=== PATIENT | female | born 1965 | race Caucasian/White ===

== ENCOUNTER 2017-06-07 08:56 | Inpatient (IN) | payer BC ==
--- NOTE | 2017-06-06 12:42 | PREOPHP ---
DATE OF ADMISSION: 06/07/2017 Brenden Eisenberg MD dictating for Keith Estevez MD PROCEDURE: Right total hip. IDENTIFICATION: The patient is [id number]. Vital signs of blood pressure 138/92, temperature 97.7, pulse 82, respirations 18, BMI 43.9, height 5 feet 3 inches, weight 248. HISTORY OF PRESENT ILLNESS: The patient has chronic pain in both hips, more on her right, for over the last 10 years. Has been followed by orthopedics for this. She has osteoarthritis. PAST SURGICAL HISTORY: Both hands and right foot. PAST MEDICAL HISTORY: OA, BPPV, EDD, asthma, history of renal calculi. FAMILY HISTORY: Her mom was 60 and of cancer of the colon. Dad is unknown. SOCIAL HISTORY: She lives locally and is with 1 dependent. Does not use tobacco but is rare use of alcohol. RESIDENTIAL GLAZIER HISTORY: 4, para 3. REVIEW OF SYSTEMS: HEENT: Decreased visual acuity, decreased hearing and headaches. GENITOURINARY: Positive for urethral calculi by history. CARDIOVASCULAR: Shortness of breath and ankle edema. PHYSICAL EXAMINATION: HEENT: BRAD and EOMI. Neck supple. Full range of motion. Tympanic membranes right and left are clear. Throat clear. LUNGS: Clear. CARDIAC: Regular rate and rhythm. No S3 or S4. No murmurs. ABDOMEN: Obese. Bowel sounds are present. No hepatosplenomegaly. GENITOURINARY: Deferred. SKIN: No lesions. LYMPHATICS: No adenopathy. NEUROLOGICAL: Grossly intact. EXTREMITIES: Right hip is painful to motion and palpation, and decreased range of motion. Left hip slight tenderness with decreased range of motion. ASSESSMENT: Severe osteoarthritis affecting the right hip. OTHER DIAGNOSES: 1. Obesity. 2. Osteoarthritis. 3. Multiple allergies. 4. Prolonged QT interval on EKG. 5. Asthma. 6. EDD. 7. Renal calculi. 8. BPPV. 9. History of SLE, on no medications. MEDICINES AND ALLERGIES: Listed in the fax material. PLAN: For Dr. Estevez to do surgery on 06/07/2017, total right hip. Dictated By: MD MYLES Sim/alvin/richard /Document#: [id number]
[2017-06-07] VITALS (21 sets, daily range): BP systolic 85–149; BP diastolic 55–96; PULSE 81–102; RESP 13–22; Ht 160 cm; Wt 112.6 kg
[~2017-06-07] VITALS: Ht 160 cm; Wt 112.6 kg
[~2017-06-07 08:56] MED LIST: BUPIVACAINE 0.5% IRR SCH; CEFAZOLIN 2 GM/50 ML (PMX) 50 ML IVPB ONE; CLONIDINE IRR SCH; DEXAMETHASONE 1 MG TAB PO ONE; EPINEPHRINE IRR SCH; GABAPENTIN 300 MG CAP PO ONE; KETOROLAC IRR SCH; SOD CHLORIDE 0.9% 100 ML, TRANEXAMIC ACID 3,000 MG IRR ONE; TRANEXAMIC ACID 1,000 MG in SOD CHLORIDE 0.9% 100 ML IVPB ONE; [UNRECOGNIZED DRUG - OTHER] IRR SCH
[2017-06-07] MEDS ORDERED: THROMBIN 5000 UNIT VIAL ONE (11:37)
[2017-06-07] MEDS ORDERED: CA CHLORIDE 10% 10 ML SYRINGE ONE (11:37)
[2017-06-07] MEDS ORDERED: POLYMYXIN/BACITRACIN 1L IRRIG ONE (11:37)
[2017-06-07] MEDS ORDERED: KETOROLAC IRR SCH ×6 (12:00)
[2017-06-07] MEDS ORDERED: BUPIVACAINE 0.5% IRR SCH ×6 (12:00)
[2017-06-07] MEDS ORDERED: [UNRECOGNIZED DRUG - OTHER] IRR SCH ×6 (12:00)
[2017-06-07] MEDS ORDERED: EPINEPHRINE IRR SCH ×6 (12:00)
[2017-06-07] MEDS ORDERED: CLONIDINE IRR SCH ×6 (12:00)
[2017-06-07] MEDS ORDERED: MIDAZOLAM 1 MG/ML 2 ML INJ ONE (13:05)
[2017-06-07] MEDS ORDERED: morphine SULFATE/PF (10 MG/10 ML) INJ ONE (13:05)
[2017-06-07] MEDS ORDERED: METOCLOPRAMIDE 10 MG INJ ONE (13:05)
--- NOTE | 2017-06-07 13:07 | HPN ---
Date/Time of Note Date/Time of Note DATE: 06/07/17 TIME: 13:06 Interval H&P Admission Note Pt. seen H&P reviewed: No system changes NOMAN LOMBARDI MD Jun 07, 2017 13:07
[2017-06-07] MEDS ORDERED: ONDANSETRON 4 MG INJ ONE (13:16)
[2017-06-07] MEDS ORDERED: FENTAnyl 50 MCG/ML VIAL ONE (13:21)
[2017-06-07] MEDS ORDERED: HYDROmorphONE (0.2 MG/ML) 10ML SYG IV PRN ×3 (14:30)
[2017-06-07] MEDS ORDERED: ONDANSETRON 4 MG INJ IV PRN ×2 (14:30→15:30)
[2017-06-07] MEDS ORDERED: DIPHENHYDRAMINE 50 MG INJ IV PRN (14:30)
[2017-06-07] MEDS ORDERED: METOCLOPRAMIDE 10 MG INJ IV PRN (14:30)
[2017-06-07] MEDS ORDERED: LABETALOL HCL 20MG INJ IV PRN (14:30)
[2017-06-07] MEDS ORDERED: MEPERIDINE 25 MG INJ IV PRN (14:30)
[2017-06-07] MEDS ORDERED: hydrALAzine 20 MG INJ IV PRN (14:30)
--- NOTE | 2017-06-07 15:26 | OPR ---
Date/Time of Note Date/Time of Note DATE: 06/07/17 TIME: 15:24 Operative Report Procedure Date: Jun 07, 2017 Preoperative Diagnosis Primary right hip arthritis Postoperative Diagnosis Primary right hip arthritis Operation Performed Right total hip arthroplasty Surgeon see signature line Rn Nursery: BENTON LOZANO MD Anesthesia Type: general Estimated Blood Loss: 150 - 200 ml's Complications: no Pt Condition Post Procedure: stable Procedure Description HEAD OF MARKETING ADOMETRY SURGEON: Benton Lozano MD was asked to be present at my request as a result of the complexity associated with this procedure including positioning of the extremity, positioning of the instrumentation and protection of the neurovascular structures. In my opinion, the assistance offered by a medical or surgical instrument maker is insufficient and Dr. Lozano should be compensated for his time. PROCEDURE IN DETAIL: Following the administration of general endotracheal anesthesia supplemented with a spinal anesthetic, the patient was placed in the supine position. The bilateral lower extremities were then prepped and draped in the usual sterile fashion. A solutions executive security radiograph was obtained for preliminary limb length and femoral size as well as acetabular size. A lateral incision was then made exposing the tensor fascia the fascia was incised the tensor was retracted laterally and the vessels were cauterized. The anterior capsule was then identified and prepared. A capsulectomy was then performed and the femoral head was then evaluated. Severe arthritic changes were noted. A femoral head cut was then made in the appropriate degree of version and inclination. The acetabulum was then exposed and a capsulectomy and labrectomy were completed. The central portion was then entered and serially reamed up to the 47 mm size. A Depuy [place] cup which is 48 mm in size with a standard liner was then fit into position with solid fixation. A 30 mm screw was used for additional fixation. Attention was then directed to the femur, the femur was exposed and prepared. The canal was entered and serially reamed up to the 12 mm size. A 12 mm Depuy [place] stem was then inserted with solid fixation. A +1.5, 32 mm femoral head, which was ceramic was then inserted. The leg was taken through full range of motion with no evident instability. In addition, radiographs revealed excellent position with reproduction of the limb lengths within a millimeter. The wound was irrigated thoroughly. The wound was then closed in layers and a Prenio for the final cover. This was watertight. Estimated blood loss was procedure was 200 cc. Postoperative radiographs will be obtained in the recovery room. \ NOMAN LOMBARDI MD Jun 07, 2017 15:26
[2017-06-07] MEDS ORDERED: PHENYLephrine (100 MCG/ML) 5ML SYG ONE (15:28)
[2017-06-07] MEDS ORDERED: morphine 4 MG/ML VIAL IV PRN (15:30)
[2017-06-07] MEDS ORDERED: ZOLPIDEM 5 MG TAB PO PRN (15:30)
[2017-06-07] MEDS ORDERED: BETHANECHOL 25 MG TAB PO PRN (15:30)
[2017-06-07] MEDS ORDERED: MAGNESIUM HYDROXIDE 30ML CUP PO PRN (15:30)
[2017-06-07] MEDS ORDERED: morphine 2 MG INJ IV PRN (15:30)
[2017-06-07] MEDS ORDERED: TRANEXAMIC ACID 1,000 MG in SOD CHLORIDE 0.9% 100 ML IV ONE (15:30)
--- NOTE | 2017-06-07 15:41 | PDOCDIS ---
Discharge Instructions DIAGNOSIS Discharge Diagnosis Hip Arthritis CONDITION Patient Condition: Good HOME CARE INSTRUCTIONS: Diet Instructions: Regular ACTIVITY: Activity Restrictions: Slowly Increase Activity Keep Limb Elevated Bathing Restrictions: Shower FOLLOW UP/APPOINTMENTS Follow-up Plan 2 weeks SCHOOL/WORK RELEASE May return to School/Work with: With Restrictions (No hip extension for six weeks) NOMAN LOMBARDI MD Jun 07, 2017 15:41
[2017-06-07 16:08] LABS: BASOPHIL # 0.1 10^3/ul (0.0-0.1); BASOPHILS % 0.6 % (0.0-2.0); EOSINOPHILS # 0.2 10^3/ul (0.0-0.5); EOSINOPHILS % 1.1 % (0.0-7.0); HEMATOCRIT 36.3 % (37.0-47.0); LYMPHOCYTES # 4.6 10^3/ul (0.8-2.9); LYMPHOCYTES % 23.2 % (15.0-51.0); MEAN CORPUSCULAR HEMOGLOBIN 30.3 pg (29.0-33.0); MEAN CORPUSCULAR HGB CONC 33.1 g/dl (32.0-37.0); MEAN CORPUSCULAR VOLUME 91.7 fl (82.0-101.0); MEAN PLATELET VOLUME 11.1 fl (7.4-10.4); MONOCYTE # 1.2 10^3/ul (0.3-0.9); NEUTROPHIL # 13.4 10^3/ul (1.6-7.5); NEUTROPHILS % 67.9 % (39.0-77.0); PLATELET COUNT 291 10^3/UL (140-415); RED BLOOD COUNT 3.96 10^6/ul (4.20-5.40); RED CELL DISTRIBUTION WIDTH 13.2 % (11.5-14.5); WHITE BLOOD COUNT 19.8 10^3/ul (4.8-10.8)
[2017-06-07] MEDS ORDERED: CEFAZOLIN 1 GM/50 ML (PMX) 50 ML IVPB ONE (16:17)
[2017-06-07 16:34] LABS: HOLD TRANSMISSIONS 1
[2017-06-07] MEDS: CEFAZOLIN 1 GM/50 ML (PMX) 50 ML IVPB SCH (16:35)
--- NOTE | 2017-06-07 17:04 | RADRPT ---
PROCEDURE: XR Pelvis. CLINICAL INDICATION: Pelvic pain. Postop. TECHNIQUE: Single AP view of the pelvis. COMPARISON: No prior studies are available for comparison. FINDINGS: There is a right hip total arthroplasty which appears satisfactory. There is no fracture, dislocatio n, or loosening. There are mild degenerative changes of the left hip with osteophytes noted. A Tavarez catheter is present in the bladder. The sacroiliac joints are grossly unremarkable. There are degenerative changes of the spine. IMPRESSION: 1. Satisfactory postoperative appearance of the right hip. 2. Mild degenerative change of the left hip. 3. Tavarez catheter in the bladder. 4. Degenerative changes of the spine. RPTAT: QQ .Edwin Myles MD, MD Date Time Electronically viewed and signed by .Edwin Myles MD, on 06/07/2017 17:03 .R/
--- NOTE | 2017-06-07 17:04 | RADRPT ---
PROCEDURE: Intraoperative imaging of the right hip with fluoroscopy. CLINICAL INDICATION: Right hip pain. Intraoperative. TECHNIQUE: Four images of the right hip were obtained in the operating room with an image intensif ier. No radiologist was in attendance. 0.5 minutes of fluoroscopy time was used. COMPARISON: No prior study is available for comparison. FINDINGS: Images demonstrate placement of a total right hip arthroplasty. IMPRESSION: 1. Satisfactory intraoperative imaging of the right hip. RPTAT: QQ .Edwin Myles MD, MD Date Time Electronically viewed and signed by .Edwin Myles MD, MD on 06/07/2017 17:04 .R/
[2017-06-07] MEDS: LACTATED RINGER'S 1,000 ML IV SCH ×2 (17:17→22:39)
[2017-06-07] MEDS: DEXAMETHASONE 2 MG TAB PO SCH ×2 (18:00→23:20)
[2017-06-07] MEDS: DIPHENHYDRAMINE 50 MG INJ IV PRN ×2 (18:37→23:20)
[2017-06-07] MEDS: SENNA/DOCUSATE NA (8.6MG/50MG) TAB PO SCH (20:20)
[2017-06-07] MEDS: KETOROLAC 15 MG INJ IV PRN (22:28)
[2017-06-08] MEDS: CEFAZOLIN 1 GM/50 ML (PMX) 50 ML IVPB SCH ×2 (01:22→09:23)
[2017-06-08] MEDS: hydrOXYzine HCL 25 MG TAB PO PRN ×2 (03:36→12:25)
[2017-06-08 05:17] LABS: BASOPHILS % 0.3 % (0.0-2.0); EOSINOPHILS # 0.1 10^3/ul (0.0-0.5); EOSINOPHILS % 0.4 % (0.0-7.0); HEMATOCRIT 30.1 % (37.0-47.0); HEMOGLOBIN 9.7 g/dl (12.0-16.0); LYMPHOCYTES # 1.4 10^3/ul (0.8-2.9); LYMPHOCYTES % 11.3 % (15.0-51.0); MEAN CORPUSCULAR HGB CONC 32.2 g/dl (32.0-37.0); MEAN CORPUSCULAR VOLUME 93.2 fl (82.0-101.0); MEAN PLATELET VOLUME 11.2 fl (7.4-10.4); MONOCYTE # 1.1 10^3/ul (0.3-0.9); MONOCYTES % 8.8 % (0.0-11.0); NEUTROPHIL # 9.5 10^3/ul (1.6-7.5); NEUTROPHILS % 78.8 % (39.0-77.0); PLATELET COUNT 222 10^3/UL (140-415); RED BLOOD COUNT 3.23 10^6/ul (4.20-5.40); RED CELL DISTRIBUTION WIDTH 13.3 % (11.5-14.5)
[2017-06-08] MEDS: DEXAMETHASONE 2 MG TAB PO SCH ×2 (06:35→12:26)
[2017-06-08] MEDS: DIPHENHYDRAMINE 50 MG INJ IV PRN ×2 (06:47→15:09)
--- NOTE | 2017-06-08 07:00 | PN ---
Date/Time of Note Date/Time of Note DATE: 06/08/17 TIME: 06:59 24 hour Interval Summary Patient is awake and alert. She has minimal to no pain at this point. She has not begun ambulation. Physical Exam Physical examination: Her wound is clean and dry. She is neurologically intact she has no signs of DVT. She does have a small puncture site from her draw that was done in the operating room. This has some drainage secondary to a small laceration. I have instructed her to keep a tight dressing on there for the next 3 days. Vital Signs Date Time Temp Pulse Resp B/P Pulse Ox O2 Delivery O2 Flow Rate FiO2 06/07/17 23:24 97.6 86 22 100/56 100 06/07/17 19:00 Nasal Cannula 2.0 Intake and Output 06/07/17 06/07/17 06/08/17 15:00 23:00 07:00 Intake Total 110 ml 2380 ml 1350 ml Output Total 650 ml 680 ml Balance 110 ml 1730 ml 670 ml VTE Prophylaxis VTE Prophylaxis Intervention: SCD's Lines/Catheters IV Catheter Type: Saline Lock Tavarez in Place: No Results Result Diagram: 06/08/17 0447 Results 24hrs Laboratory Tests Test 06/07/17 15:57 06/08/17 04:47 White Blood Count 19.8 H 12.0 #H Red Blood Count 3.96 L 3.23 L Hemoglobin 12.0 9.7 L Hematocrit 36.3 L 30.1 L Mean Corpuscular Volume 91.7 93.2 Mean Corpuscular Hemoglobin 30.3 30.0 Mean Corpuscular Hemoglobin Concent 33.1 32.2 Red Cell Distribution Width 13.2 13.3 Platelet Count 291 222 # Mean Platelet Volume 11.1 H 11.2 H Neutrophils % 67.9 78.8 H Lymphocytes % 23.2 11.3 L Monocytes % 6.0 8.8 Eosinophils % 1.1 0.4 Basophils % 0.6 0.3 Nucleated Red Blood Cells % 0.0 0.0 Neutrophils # 13.4 H 9.5 H Lymphocytes # 4.6 H 1.4 Monocytes # 1.2 H 1.1 H Eosinophils # 0.2 0.1 Basophils # 0.1 0.0 Nucleated Red Blood Cells # 0.0 0.0 CBC Results Faxed/Phoned 1 *H Assessment/Plan Assessment/Plan Assessment: Status post total hip replacement Plan: She will begin to ambulate this morning. Depending on her ability, she will be discharged either today or tomorrow. Medications Medications Home Meds No Active Prescriptions or Reported Meds NOMAN LOMBARDI MD Jun 08, 2017 07:00
--- NOTE | 2017-06-08 07:01 | DS ---
Date/Time of Note Date/Time of Note DATE: 06/08/17 TIME: 07:00 Discharge Summary Admission/Discharge Info Admit Date/Time Jun 07, 2017 at 08:56 Discharge Date/Time June 08, 2017 following clearance by physical therapy Discharge Diagnosis Hip Arthritis Patient Condition: Good Procedures Right total hip arthroplasty Hx of Present Illness Severe pain and stiffness for several years. Hospital Course Patient was admitted and underwent an uncomplicated procedure. Postoperative day #1 she was ambulated by physical therapy. Cleared and then discharged. She will be followed up in the office in approximately 2 weeks. Home Meds No Active Prescriptions or Reported Meds Follow-up Plan 2 weeks Primary Care Provider Not On Staff Doctor Pending Labs Laboratory Tests Test 06/07/17 15:57 06/08/17 04:47 White Blood Count 19.810^3/ul (4.8-10.8) 12.010^3/ul (4.8-10.8) Red Blood Count 3.9610^6/ul (4.20-5.40) 3.2310^6/ul (4.20-5.40) Hemoglobin 12.0g/dl (12.0-16.0) 9.7g/dl (12.0-16.0) Hematocrit 36.3% (37.0-47.0) 30.1% (37.0-47.0) Mean Corpuscular Volume 91.7fl (82.0-101.0) 93.2fl (82.0-101.0) Mean Corpuscular Hemoglobin 30.3pg (29.0-33.0) 30.0pg (29.0-33.0) Mean Corpuscular Hemoglobin Concent 33.1g/dl (32.0-37.0) 32.2g/dl (32.0-37.0) Red Cell Distribution Width 13.2% (11.5-14.5) 13.3% (11.5-14.5) Platelet Count 96439^3/UL (140-415) 39168^3/UL (140-415) Mean Platelet Volume 11.1fl (7.4-10.4) 11.2fl (7.4-10.4) Neutrophils % 67.9% (39.0-77.0) 78.8% (39.0-77.0) Lymphocytes % 23.2% (15.0-51.0) 11.3% (15.0-51.0) Monocytes % 6.0% (0.0-11.0) 8.8% (0.0-11.0) Eosinophils % 1.1% (0.0-7.0) 0.4% (0.0-7.0) Basophils % 0.6% (0.0-2.0) 0.3% (0.0-2.0) Nucleated Red Blood Cells % 0.0/100WBC (0.0-0.0) 0.0/100WBC (0.0-0.0) Neutrophils # 13.410^3/ul (1.6-7.5) 9.510^3/ul (1.6-7.5) Lymphocytes # 4.610^3/ul (0.8-2.9) 1.410^3/ul (0.8-2.9) Monocytes # 1.210^3/ul (0.3-0.9) 1.110^3/ul (0.3-0.9) Eosinophils # 0.210^3/ul (0.0-0.5) 0.110^3/ul (0.0-0.5) Basophils # 0.110^3/ul (0.0-0.1) 0.010^3/ul (0.0-0.1) Nucleated Red Blood Cells # 0.010^3/ul (0.0-0.0) 0.010^3/ul (0.0-0.0) CBC Results Faxed/Phoned 1 NOMAN LOMBARDI MD Jun 08, 2017 07:01
[2017-06-08 08:22] VITALS: BP 94/56; RESP 18
[2017-06-08] MEDS: SENNA/DOCUSATE NA (8.6MG/50MG) TAB PO SCH ×2 (09:23→21:00)
[2017-06-08] MEDS: ASPIRIN 81 MG TAB PO SCH (09:24)
[2017-06-08] MEDS: KETOROLAC 15 MG INJ IV PRN ×3 (09:43→22:51)
[2017-06-08] MEDS: LACTATED RINGER'S 1,000 ML IV SCH ×2 (11:21→21:21)
--- NOTE | 2017-06-08 13:00 | PN ---
Date/Time of Note Date/Time of Note DATE: 06/08/17 TIME: 12:58 Assessment/Plan VTE Prophylaxis VTE Prophylaxis Intervention: ambulation Lines/Catheters IV Catheter Type (from Nrsg): Saline Lock Urinary Cath still in place: Yes Subjective 24 Hr Interval Summary Free Text/Dictation Anethesia Note: A 52 year old female s/p Right hip arthroplasty under Ga, spinal pod #1 is doing well. pain is controlle, headache, back pain or nack inflammation,or n/v. itching is controlled with Benedryl. care per surgery team Exam/Review of Systems Vital Signs Vitals Vital Signs Date Time Temp Pulse Resp B/P Pulse Ox O2 Delivery O2 Flow Rate FiO2 06/08/17 08:22 99.0 91 18 94/56 94 06/07/17 19:00 Nasal Cannula 2.0 Intake and Output 06/07/17 06/07/17 06/08/17 15:00 23:00 07:00 Intake Total 110 ml 2380 ml 1350 ml Output Total 650 ml 680 ml Balance 110 ml 1730 ml 670 ml Results Result Diagram: 06/08/17 0447 Results 24 hrs Laboratory Tests Test 06/07/17 15:57 06/08/17 04:47 White Blood Count 19.8 H 12.0 #H Red Blood Count 3.96 L 3.23 L Hemoglobin 12.0 9.7 L Hematocrit 36.3 L 30.1 L Mean Corpuscular Volume 91.7 93.2 Mean Corpuscular Hemoglobin 30.3 30.0 Mean Corpuscular Hemoglobin Concent 33.1 32.2 Red Cell Distribution Width 13.2 13.3 Platelet Count 291 222 # Mean Platelet Volume 11.1 H 11.2 H Neutrophils % 67.9 78.8 H Lymphocytes % 23.2 11.3 L Monocytes % 6.0 8.8 Eosinophils % 1.1 0.4 Basophils % 0.6 0.3 Nucleated Red Blood Cells % 0.0 0.0 Neutrophils # 13.4 H 9.5 H Lymphocytes # 4.6 H 1.4 Monocytes # 1.2 H 1.1 H Eosinophils # 0.2 0.1 Basophils # 0.1 0.0 Nucleated Red Blood Cells # 0.0 0.0 CBC Results Faxed/Phoned 1 *H Medications Medications Current Medications Senna/Docusate Sodium (Senokot-S) 1 tab BID PO Last administered on 06/08/17 09:23; Admin Dose 1 TAB; Start 06/07/17 at 21:00 Simethicone (Mylicon) 80 mg TID PRN PO DISTENSION/GAS/BLOATING; Start 06/07/17 at 15:30 Magnesium Hydroxide (Milk Of Mag) 30 ml BID PRN PO CONSTIPATION; Start at 15:30 Morphine Sulfate (morphine) 2 mg Q2H PRN IV PAIN LEVEL 1-5; Start 06/07/17 at 15:30 Morphine Sulfate (morphine) 4 mg Q4H PRN IV PAIN LEVEL 6-10; Start 06/07/17 at 15:30 Ketorolac Tromethamine (Toradol) 15 mg Q6H PRN IV PAIN Last administered on 09:43; Admin Dose 15 MG; Start 06/07/17 at 15:30; Stop 06/10/17 at 15:29 Ondansetron HCl (Zofran Inj) 4 mg Q6H PRN IV NAUSEA AND/OR VOMITING; Start at 15:30 Diphenhydramine HCl (Benadryl) 25 mg Q6H PRN IV PRURITUS Last administered on 18:37; Admin Dose 25 MG; Start 06/07/17 at 15:30 Aspirin 81 mg 81 mg DAILY PO Last administered on 06/08/17 09:24; Admin Dose 81 MG; Start 06/08/17 at 09:00 Lactated Ringer's (Lr) 1,000 ml @ 100 mls/hr Q10H IV Last administered on 06/07 22:39; Admin Dose 100 MLS/HR; Start 06/07/17 at 15:21 Diphenhydramine HCl (Benadryl) 50 mg Q6H PRN IV ITCHING Last administered on 06:47; Admin Dose 50 MG; Start 06/07/17 at 23:30 Hydroxyzine HCl (Atarax) 25 mg Q6H PRN PO ITCHING Last administered on 12:25; Admin Dose 25 MG; Start 06/07/17 at 23:30 DENY EGAN MD Jun 08, 2017 13:00
[2017-06-08 14:00] VITALS: BP 105/57; RESP 18
[2017-06-08] MEDS ORDERED: KETOROLAC 15 MG INJ IM STA (17:17)
[2017-06-08 20:43] VITALS: BP 111/57; RESP 22
[2017-06-08] MEDS ORDERED: KETOROLAC 10 MG PO PRN (23:30)
[2017-06-09 05:12] LABS: BASOPHILS % 0.1 % (0.0-2.0); HEMOGLOBIN 8.8 g/dl (12.0-16.0); LYMPHOCYTES # 1.4 10^3/ul (0.8-2.9); LYMPHOCYTES % 10.6 % (15.0-51.0); MEAN CORPUSCULAR HEMOGLOBIN 29.7 pg (29.0-33.0); MEAN CORPUSCULAR HGB CONC 32.6 g/dl (32.0-37.0); MEAN CORPUSCULAR VOLUME 91.2 fl (82.0-101.0); MEAN PLATELET VOLUME 11.7 fl (7.4-10.4); MONOCYTE # 1.2 10^3/ul (0.3-0.9); MONOCYTES % 8.9 % (0.0-11.0); NEUTROPHIL # 10.8 10^3/ul (1.6-7.5); PLATELET COUNT 198 10^3/UL (140-415); RED BLOOD COUNT 2.96 10^6/ul (4.20-5.40); RED CELL DISTRIBUTION WIDTH 13.2 % (11.5-14.5); WHITE BLOOD COUNT 13.6 10^3/ul (4.8-10.8)
[2017-06-09] MEDS: LACTATED RINGER'S 1,000 ML IV SCH (07:21)
[2017-06-09 08:20] VITALS: BP 122/65; RESP 16
[2017-06-09] MEDS: SENNA/DOCUSATE NA (8.6MG/50MG) TAB PO SCH (09:00)
[2017-06-09] MEDS: ASPIRIN 81 MG TAB PO SCH (09:40)
[2017-06-09 14:00] VITALS: BP 111/65; RESP 18
== END 2017-06-09 16:00 | disposition home or self-care (01) | DRG 470 ==
LOC: REC 08:56 → EDSTATUS 09:30 → MS1 17:15
PROVIDERS: ADMIT Orthopaedic Surgery; ATTEND Orthopaedic Surgery
PROC: 0SR904A Replacement of Right Hip Joint with Ceramic on Polyethylene Synthetic Substitute, Uncemented, Open Approach (ICD-10-PCS; principal; 2017-06-07 12:00)
DX: M16.11 Unilateral primary osteoarthritis, right hip (principal); Z68.41 Body mass index [BMI] 40.0-44.9, adult; I45.81 Long QT syndrome; G62.9 Polyneuropathy, unspecified; E66.01 Morbid (severe) obesity due to excess calories; J45.909 Unspecified asthma, uncomplicated; G47.33 Obstructive sleep apnea (adult) (pediatric); H81.10 Benign paroxysmal vertigo, unspecified ear; Z87.442 Personal history of urinary calculi
CPT/HCPCS: 72170; 73530; 84703; 85025; 86999; 87086; 97116; 97162; 97530; C1713; C1776; J0171; J0690; J0735; J1170; J1200; J1885; J2250; J2274; J2370; J2405; J2765; J3010; J3370; J7120

== ENCOUNTER 2017-08-16 06:32 | Inpatient (IN) | payer BC ==
--- NOTE | 2017-08-14 08:13 | PREOPHP ---
DATE OF ADMISSION: 08/16/2017 STAFF PHYSICIAN: Dr. Lombardi. DATE OF SURGERY: 08/16/2017 at [facility]. PROCEDURE: Open toe left hip replacement. HISTORY AND PHYSICAL: She previously had right hip replacement. She has chronic pain in her left h ip and osteoarthritis. PAST SURGICAL HISTORY: Both hands have had surgery, right foot surgery and as stated above, a total right hip replacement on 05/2017. PAST MEDICAL HISTORY: OA, BPPV, EDD, asthma, and history of renal calculi. FAMILY HISTORY: Her dad at 60 of colon cancer, her mom unknown causes. SOCIAL HISTORY: She lives locally with her , caryn. Does not use tobacco, rare use o f alcohol. SILVER SERVICE WAITER HISTORY: 4, para 3. REVIEW OF SYSTEMS: HEENT: Decreased visual acuity and headaches. : Renal calculi. CV: Shortness of breath and ankle edema. PHYSICAL EXAMINATION: VITAL SIGNS: Temperature 97.9, pulse 86, respirations 18, BP 136/78. HEENT: PERRLA. EOMI. TMs right and left are clear. Throat clear. RESPIRATORY: Clear with no wheezing. CV: Regular rate and rhythm. No S3, S4 or murmurs. ABDOMEN: Bowel sounds are present. No hepatosplenomegaly. SKIN: Reveals no lesions. LYMPHS: No adenopathy. NEUROLOGIC: Alert and normal. EXTREMITIES: Left hip, slight pain with range of motion. Decreased range of motion and left hip sl ight tenderness with palpation and range of motion somewhat better than on right side. ASSESSMENT: Preoperative history and physical total left hip replacement due to severe osteoarthrit is, left hip OA, obesity, multiple allergies, prolonged QT interval, asthma and history of renal michael culi. I will also send all labs, EKG and chest x-ray which have been reviewed and do not reveal any additional risks and a list of her current medications and allergies. DR. DOUGLAS BENTLEY DICTATING FOR DR. NOMAN LOMBARDI Dictated By: NOMAN BURNS/[facility] Conf#: [id number] DID#: [id number]
[2017-08-16] VITALS (33 sets, daily range): BP systolic 102–162; BP diastolic 58–86; PULSE 98–118; RESP 7–46; Ht 160 cm; Wt 113.6 kg
[~2017-08-16] VITALS: Ht 160 cm; Wt 113.6 kg
[~2017-08-16 06:32] MED LIST changes: -BUPIVACAINE 0.5% IRR SCH; -CEFAZOLIN 2 GM/50 ML (PMX) 50 ML IVPB ONE; -CLONIDINE IRR SCH; -EPINEPHRINE IRR SCH; -KETOROLAC IRR SCH; +VANCOMYCIN 1 GM (PMX) 250 ML IVPB ONE; -[UNRECOGNIZED DRUG - OTHER] IRR SCH
--- NOTE | 2017-08-16 06:47 | HPN ---
Date/Time of Note Date/Time of Note DATE: 08/16/17 TIME: 06:47 Interval H&P Admission Note Pt. seen H&P reviewed: No system changes NOMAN LOMBARDI MD Aug 16, 2017 06:47
[2017-08-16] MEDS ORDERED: PROPOFOL 20 ML ONE (06:52)
[2017-08-16] MEDS ORDERED: MIDAZOLAM 1 MG/ML 2 ML INJ ONE (06:52)
[2017-08-16] MEDS ORDERED: NEOSTIGMINE 3 MG/3 ML SYRINGE ONE (06:53)
[2017-08-16] MEDS ORDERED: ROCURONIUM 50 MG INJ ONE (06:53)
[2017-08-16] MEDS ORDERED: SUGAMMADEX SODIUM 200 MG/2 ML VIAL IV ONE (06:53)
[2017-08-16] MEDS ORDERED: POLYMYXIN/BACITRACIN 1L IRRIG ONE (06:54)
[2017-08-16] MEDS ORDERED: GLYCOPYRROLATE 0.4 MG INJ ONE (06:54)
[2017-08-16] MEDS ORDERED: ONDANSETRON 4 MG INJ ONE (06:58)
[2017-08-16] MEDS ORDERED: DEXAMETHASONE 4 MG/ML 1 ML INJ ONE (06:58)
[2017-08-16] MEDS ORDERED: MIDAZOLAM 1 MG/ML 2 ML INJ IV PRN (07:00)
[2017-08-16] MEDS ORDERED: traMADol 50 MG TAB PO ONE (07:00)
[2017-08-16] MEDS ORDERED: LABETALOL HCL 20MG INJ IV PRN (07:00)
[2017-08-16] MEDS ORDERED: hydrALAzine 20 MG INJ IV PRN (07:00)
[2017-08-16] MEDS ORDERED: LIDOCAINE 2% (SDV) 5 ML INJ ONE (07:00)
[2017-08-16] MEDS ORDERED: BUPIVACAINE 0.5% (SDV) 30 ML, morphine SULFATE (PF) 8 MG, EPINEPHrine 0.3 MG, KETOROLAC... IRR SCH ×7 (07:00)
[2017-08-16] MEDS ORDERED: ONDANSETRON 4 MG INJ IV PRN ×2 (07:00→13:30)
[2017-08-16] MEDS ORDERED: EPHEDrine SULFATE 50 MG/5 ML SYG IV PRN (07:00)
[2017-08-16] MEDS ORDERED: DIPHENHYDRAMINE 50 MG INJ IV PRN (07:00)
[2017-08-16] MEDS ORDERED: ATROPINE 1 MG/10 ML SYRINGE IV PRN (07:00)
[2017-08-16] MEDS ORDERED: morphine SULFATE/PF (10 MG/10 ML) INJ ONE (08:32)
[2017-08-16] MEDS ORDERED: DIPHENHYDRAMINE 50 MG INJ ONE (08:33)
[2017-08-16] MEDS ORDERED: SUCCINYLCHOLINE CHLORIDE 100 MG/5 ML SYG IV ONE (08:34)
[2017-08-16] MEDS ORDERED: THROMBIN 5000 UNIT VIAL ONE (09:02)
[2017-08-16] MEDS ORDERED: CA CHLORIDE 10% 10 ML SYRINGE ONE (09:02)
[2017-08-16] MEDS ORDERED: LABETALOL HCL 20MG INJ ONE (09:06)
[2017-08-16] MEDS ORDERED: EPHEDrine SULFATE 50 MG/5 ML SYG ONE (09:30)
--- NOTE | 2017-08-16 10:32 | RADRPT ---
PROCEDURE: X-ray fluoroscopy guidance CLINICAL INDICATION: LT HIP REPLACEMENT TECHNIQUE: Fluoroscopic guidance was utilized for intraoperative procedure. COMPARISON: None. FINDINGS: Fluoroscopic guidance was utilized for intraoperative procedure. 0.4 minutes of fluoroscopy time wa s utilized for the procedure. 3 x-ray images were obtained during the procedure. Total bilateral hip prostheses are noted in near anatomic alignment. IMPRESSION: X-ray fluoroscopic guidance utilized for intraoperative procedure. Total bilateral hip prostheses. Please see procedure note details. RPTAT: EE Physician Philip Date Time Electronically viewed and signed by Physician Philip on 08/16/2017 10:32 RA/
--- NOTE | 2017-08-16 10:36 | OPR ---
Date/Time of Note Date/Time of Note DATE: 08/16/17 TIME: 10:33 Operative Report Procedure Date: Aug 16, 2017 Preoperative Diagnosis Left hip arthritis Postoperative Diagnosis Left hip arthritis Operation/Procedure Performed Left total hip arthroplasty Surgeon see signature line Wellness Consultant Francisco Chavarria MD Anesthesia Type: general Estimated Blood Loss: 150 - 200 ml's Transfusion none Specimen None Grafts/Implants none Complications none Procedure Description VACUUM DRIER TENDER SURGEON: Francisco Chavarria MD was asked to be present at my request as a result of the complexity associated with this procedure including positioning of the extremity, positioning of the instrumentation and protection of the neurovascular structures. In my opinion, the assistance offered by a neurosurgical physician assistant is insufficient and [] should be compensated for his time. PROCEDURE IN DETAIL: Following the administration of general endotracheal anesthesia supplemented with a spinal anesthetic, the patient was placed in the supine position. The bilateral lower extremities were then prepped and draped in the usual sterile fashion. A convertible power shovel operator radiograph was obtained for preliminary limb length and femoral size as well as acetabular size. A lateral incision was then made exposing the tensor fascia the fascia was incised the tensor was retracted laterally and the vessels were cauterized. The anterior capsule was then identified and prepared. A capsulectomy was then performed and the femoral head was then evaluated. Severe arthritic changes were noted. A femoral head cut was then made in the appropriate degree of version and inclination. The acetabulum was then exposed and a capsulectomy and labrectomy were completed. The central portion was then entered and serially reamed up to the 47 mm size. A Depuy [place] cup which is 48 mm in size with a standard liner was then fit into position with solid fixation. A 30 mm screw was used for additional fixation. Attention was then directed to the femur, the femur was exposed and prepared. The canal was entered and serially reamed up to the size 5 broach. A size 5 Depuy [place] stem was then inserted with solid fixation. A +5 femoral head, which was ceramic was then inserted. The leg was taken through full range of motion with no evident instability. In addition, radiographs revealed excellent position with reproduction of the limb lengths within a millimeter. The wound was irrigated thoroughly. The wound was then closed in layers and a Prenio for the final cover. This was watertight. Estimated blood loss was procedure [id number] cc. Postoperative radiographs will be obtained in the recovery room. NOMAN LOMBARDI MD Aug 16, 2017 10:36
[2017-08-16] MEDS ORDERED: FLUMAZENIL 0.5 MG INJ ONE (11:13)
--- NOTE | 2017-08-16 11:40 | PDOCDIS ---
Discharge Instructions DIAGNOSIS Discharge Diagnosis Primary hip arthritis, left hip CONDITION Patient Condition: Good HOME CARE INSTRUCTIONS: Diet Instructions: Regular ACTIVITY: Activity Restrictions: Slowly Increase Activity Keep Limb Elevated Bathing Restrictions: Shower FOLLOW UP/APPOINTMENTS Follow-up Plan 2 weeks in the office SCHOOL/WORK RELEASE May return to School/Work with: With Restrictions School/Work Release Comment: No hip extension for 6 weeks NOMAN LOMBARDI MD Aug 16, 2017 11:40
[2017-08-16] MEDS ORDERED: KETOROLAC 15 MG INJ IV PRN (13:30)
[2017-08-16] MEDS ORDERED: ZOLPIDEM 5 MG TAB PO PRN (13:30)
[2017-08-16] MEDS ORDERED: morphine 2 MG INJ IV PRN (13:30)
[2017-08-16] MEDS ORDERED: OXYCODONE/ACETAMINOPHEN (5/325) TAB PO PRN ×2 (13:30)
[2017-08-16] MEDS ORDERED: MAGNESIUM HYDROXIDE 30ML CUP PO PRN (13:30)
[2017-08-16] MEDS ORDERED: morphine 4 MG/ML VIAL IV PRN (13:30)
[2017-08-16] MEDS ORDERED: TRANEXAMIC ACID 1,000 MG in SOD CHLORIDE 0.9% 100 ML IV ONE (13:30)
[2017-08-16] MEDS: LACTATED RINGER'S 1,000 ML IV SCH ×2 (13:58→23:03)
[2017-08-16] MEDS: DIPHENHYDRAMINE 50 MG INJ IV PRN (13:59)
--- NOTE | 2017-08-16 14:56 | RADRPT ---
PROCEDURE: XR Pelvis. CLINICAL INDICATION: Pelvic pain. TECHNIQUE: Single AP view of the pelvis. COMPARISON: 06/07/2017. FINDINGS: There are bilateral total hip arthroplasties which appears satisfactory. There is no fracture, dislo cation, or loosening. There is no lytic or blastic lesion. A Tavarez catheter is present in the bladder. The sacroiliac joints are grossly unremarkable. The lower lumbar spine is unremarkable. IMPRESSION: 1. Satisfactory postoperative appearance of both hips. RPTAT: QQ .Edwin Myles MD, MD Date Time Electronically viewed and signed by .Edwin Myles MD, on 08/16/2017 14:56 .R/
[2017-08-16 15:16] LABS: BASOPHILS % 0.2 % (0.0-2.0); EOSINOPHILS % 0.1 % (0.0-7.0); HEMATOCRIT 36.5 % (37.0-47.0); HEMOGLOBIN 11.9 g/dl (12.0-16.0); LYMPHOCYTES # 0.7 10^3/ul (0.8-2.9); MEAN CORPUSCULAR HEMOGLOBIN 28.4 pg (29.0-33.0); MEAN CORPUSCULAR HGB CONC 32.6 g/dl (32.0-37.0); MEAN CORPUSCULAR VOLUME 87.1 fl (82.0-101.0); MEAN PLATELET VOLUME 11.6 fl (7.4-10.4); MONOCYTE # 0.4 10^3/ul (0.3-0.9); MONOCYTES % 2.9 % (0.0-11.0); NEUTROPHIL # 13.2 10^3/ul (1.6-7.5); NEUTROPHILS % 91.2 % (39.0-77.0); PLATELET COUNT 278 10^3/UL (140-415); RED BLOOD COUNT 4.19 10^6/ul (4.20-5.40); RED CELL DISTRIBUTION WIDTH 13.7 % (11.5-14.5); WHITE BLOOD COUNT 14.5 10^3/ul (4.8-10.8)
[2017-08-16] MEDS: CEFAZOLIN 1 GM/50 ML (PMX) 50 ML IVPB SCH ×2 (15:44→23:03)
[2017-08-16] MEDS: DEXAMETHASONE 2 MG TAB PO SCH (18:13)
[2017-08-16] MEDS ORDERED: ALBUTEROL/IPRATROPIUM (NEB) 3 ML AMP HHN PRN (20:00)
[2017-08-16] MEDS: GABAPENTIN 300 MG CAP PO SCH (20:28)
[2017-08-16] MEDS: SENNA/DOCUSATE NA (8.6MG/50MG) TAB PO SCH (20:28)
[2017-08-17] VITALS (9 sets, daily range): BP systolic 105–132; BP diastolic 54–77; PULSE 94–116; RESP 16–20
[2017-08-17] MEDS: DEXAMETHASONE 2 MG TAB PO SCH ×3 (00:12→12:20)
[2017-08-17 06:15] LABS: ABNORMAL IP MESSAGE 1; BASOPHILS % 0.1 % (0.0-2.0); HEMATOCRIT 35.4 % (37.0-47.0); HEMOGLOBIN 10.9 g/dl (12.0-16.0); LYMPHOCYTES # 1.2 10^3/ul (0.8-2.9); LYMPHOCYTES % 7.2 % (15.0-51.0); MEAN CORPUSCULAR HEMOGLOBIN 27.8 pg (29.0-33.0); MEAN CORPUSCULAR HGB CONC 30.8 g/dl (32.0-37.0); MEAN CORPUSCULAR VOLUME 90.3 fl (82.0-101.0); MEAN PLATELET VOLUME 11.5 fl (7.4-10.4); MONOCYTE # 1.6 10^3/ul (0.3-0.9); MONOCYTES % 9.3 % (0.0-11.0); NEUTROPHIL # 14.2 10^3/ul (1.6-7.5); NEUTROPHILS % 82.9 % (39.0-77.0); PLATELET COUNT 308 10^3/UL (140-415); RED BLOOD COUNT 3.92 10^6/ul (4.20-5.40); RED CELL DISTRIBUTION WIDTH 13.7 % (11.5-14.5); WHITE BLOOD COUNT 17.2 10^3/ul (4.8-10.8)
[2017-08-17 06:29] LABS: POSITIVE DIFF @See below
[2017-08-17] MEDS: DIPHENHYDRAMINE 50 MG INJ IV PRN ×3 (06:45→18:26)
--- NOTE | 2017-08-17 06:50 | PN ---
Date/Time of Note Date/Time of Note DATE: 08/17/17 TIME: 06:49 24 hour Interval Summary Patient is awake and alert and comfortable this morning. Physical Exam Physical examination: Her wound is clean and dry. She is neurologically intact. There are no signs of DVT. Vital Signs Date Time Temp Pulse Resp B/P Pulse Ox O2 Delivery O2 Flow Rate FiO2 08/17/17 05:40 104 97 30 08/17/17 04:34 98.4 16 128/55 BIPAP 08/16/17 21:15 14.0 Intake and Output 08/16/17 08/16/17 08/17/17 15:00 23:00 07:00 Intake Total 1250 ml 410 ml 600 ml Output Total 1700 ml Balance -450 ml 410 ml 600 ml VTE Prophylaxis VTE Prophylaxis Intervention: SCD's Lines/Catheters IV Catheter Type: Saline Lock Central line still needed: No Tavarez in Place: No Results Result Diagram: 08/17/17 0504 Results 24hrs Laboratory Tests Test 08/16/17 14:19 08/17/17 05:04 White Blood Count 14.5 H 17.2 H Red Blood Count 4.19 #L 3.92 L Hemoglobin 11.9 #L 10.9 L Hematocrit 36.5 #L 35.4 L Mean Corpuscular Volume 87.1 90.3 Mean Corpuscular Hemoglobin 28.4 L 27.8 L Mean Corpuscular Hemoglobin Concent 32.6 30.8 L Red Cell Distribution Width 13.7 13.7 Platelet Count 278 # 308 Mean Platelet Volume 11.6 H 11.5 H Neutrophils % 91.2 H 82.9 H Lymphocytes % 5.0 L 7.2 L Monocytes % 2.9 9.3 Eosinophils % 0.1 0.0 Basophils % 0.2 0.1 Nucleated Red Blood Cells % 0.0 0.0 Neutrophils # 13.2 H 14.2 H Lymphocytes # 0.7 L 1.2 Monocytes # 0.4 1.6 H Eosinophils # 0.0 0.0 Basophils # 0.0 0.0 Nucleated Red Blood Cells # 0.0 0.0 Assessment/Plan Assessment/Plan Assessment: Status post total hip replacement Plan: Patient will begin physical therapy this morning. Discharged when independently ambulatory. Medications Medications Home Meds No Active Prescriptions or Reported Meds NOMAN LOMBARDI MD Aug 17, 2017 06:50
[2017-08-17] MEDS: CEFAZOLIN 1 GM/50 ML (PMX) 50 ML IVPB SCH (08:59)
[2017-08-17] MEDS: SENNA/DOCUSATE NA (8.6MG/50MG) TAB PO SCH ×2 (09:00→20:30)
[2017-08-17] MEDS: ASPIRIN 81 MG TAB PO SCH (09:00)
[2017-08-17] MEDS: LACTATED RINGER'S 1,000 ML IV SCH ×2 (09:00→19:45)
[2017-08-17] MEDS: KETOROLAC 30 MG INJ IV PRN ×2 (09:55→16:25)
[2017-08-17] MEDS: GABAPENTIN 300 MG CAP PO SCH (20:25)
[2017-08-18 00:55] VITALS: PULSE 94
[2017-08-18 03:09] VITALS: PULSE 102
[2017-08-18] MEDS: DIPHENHYDRAMINE 50 MG INJ IV PRN (03:34)
[2017-08-18] MEDS: KETOROLAC 30 MG INJ IV PRN ×4 (03:35→22:41)
[2017-08-18] MEDS: LACTATED RINGER'S 1,000 ML IV SCH ×2 (04:47→12:08)
[2017-08-18 05:31] VITALS: PULSE 96
[2017-08-18 05:38] LABS: BASOPHILS % 0.2 % (0.0-2.0); HEMATOCRIT 29.1 % (37.0-47.0); HEMOGLOBIN 9.1 g/dl (12.0-16.0); LYMPHOCYTES # 1.3 10^3/ul (0.8-2.9); LYMPHOCYTES % 10.9 % (15.0-51.0); MEAN CORPUSCULAR HEMOGLOBIN 27.7 pg (29.0-33.0); MEAN CORPUSCULAR HGB CONC 31.3 g/dl (32.0-37.0); MEAN CORPUSCULAR VOLUME 88.4 fl (82.0-101.0); MEAN PLATELET VOLUME 11.5 fl (7.4-10.4); MONOCYTE # 1.1 10^3/ul (0.3-0.9); MONOCYTES % 9.2 % (0.0-11.0); NEUTROPHIL # 9.3 10^3/ul (1.6-7.5); NEUTROPHILS % 79.3 % (39.0-77.0); PLATELET COUNT 226 10^3/UL (140-415); RED BLOOD COUNT 3.29 10^6/ul (4.20-5.40); RED CELL DISTRIBUTION WIDTH 13.9 % (11.5-14.5); WHITE BLOOD COUNT 11.7 10^3/ul (4.8-10.8)
[2017-08-18 08:04] VITALS: BP 121/68; RESP 18
[2017-08-18] MEDS: SENNA/DOCUSATE NA (8.6MG/50MG) TAB PO SCH ×3 (09:00→21:00)
[2017-08-18] MEDS: ASPIRIN 81 MG TAB PO SCH (09:33)
--- NOTE | 2017-08-18 09:44 | DS ---
Date/Time of Note Date/Time of Note DATE: 08/18/17 TIME: 09:43 Discharge Summary Admission/Discharge Info Admit Date/Time Aug 16, 2017 at 06:32 Discharge Date/Time Aug 18, 2017 Discharge Diagnosis Primary hip arthritis, left hip Patient Condition: Good Hospital Course Admitted and underwent THR. POD #2 she was afeb, stable and indep ambulatory. To be D/c'd and followed up in office in two weeks. Home Meds No Active Prescriptions or Reported Meds Follow-up Plan 2 weeks in the office Primary Care Provider Not On Staff Doctor Pending Labs Laboratory Tests Test 08/18/17 04:55 White Blood Count 11.710^3/ul (4.8-10.8) Red Blood Count 3.2910^6/ul (4.20-5.40) Hemoglobin 9.1g/dl (12.0-16.0) Hematocrit 29.1% (37.0-47.0) Mean Corpuscular Volume 88.4fl (82.0-101.0) Mean Corpuscular Hemoglobin 27.7pg (29.0-33.0) Mean Corpuscular Hemoglobin Concent 31.3g/dl (32.0-37.0) Red Cell Distribution Width 13.9% (11.5-14.5) Platelet Count 89760^3/UL (140-415) Mean Platelet Volume 11.5fl (7.4-10.4) Neutrophils % 79.3% (39.0-77.0) Lymphocytes % 10.9% (15.0-51.0) Monocytes % 9.2% (0.0-11.0) Eosinophils % 0.0% (0.0-7.0) Basophils % 0.2% (0.0-2.0) Nucleated Red Blood Cells % 0.0/100WBC (0.0-0.0) Neutrophils # 9.310^3/ul (1.6-7.5) Lymphocytes # 1.310^3/ul (0.8-2.9) Monocytes # 1.110^3/ul (0.3-0.9) Eosinophils # 0.010^3/ul (0.0-0.5) Basophils # 0.010^3/ul (0.0-0.1) Nucleated Red Blood Cells # 0.010^3/ul (0.0-0.0) NOMAN LOMBARDI MD Aug 18, 2017 09:44
--- NOTE | 2017-08-18 11:01 | PN ---
Date/Time of Note Date/Time of Note DATE: 08/18/17 TIME: 10:56 Assessment/Plan VTE Prophylaxis VTE Prophylaxis Intervention: ambulation, anti-embolic stocking, SCD's Lines/Catheters IV Catheter Type (from Nrsg): Saline Lock Urinary Cath still in place: No Assessment/Plan Assessment/Plan 52 yo F s/p Left Total hip arthroplasty on 08/16/17, recovering well with no acute orthopedic issues or concerns. Continue po pain meds and ice prn. We will have her work with physical therapy today and if she is cleared safe for home, she can be discharged home. Subjective 24 Hr Interval Summary Free Text/Dictation Patient resting comfortably in bed this morning eating breakfast. Her pain has been well controlled although she does report a little soreness over her incision. She reports she had the best night sleep that she has had in a long time. Constitutional: no complaints Respiratory: no complaints Cardiovascular: no complaints Gastrointestinal: no complaints Exam/Review of Systems Vital Signs Vitals Vital Signs Date Time Temp Pulse Resp B/P Pulse Ox O2 Delivery O2 Flow Rate FiO2 08/18/17 08:04 98.7 99 18 121/68 96 08/18/17 05:31 30 08/17/17 20:48 Nasal Cannula 3.0 Intake and Output 08/17/17 08/17/17 08/18/17 15:00 23:00 07:00 Intake Total 590 ml 1360 ml 1200 ml Output Total 800 ml Balance -210 ml 1360 ml 1200 ml Exam In general patient in no acute distress. Focused exam of left lower extremity: Incision clean, dry and intact 5/5 strength with resisted ankle dorsiflexion/plantarflexion, and resisted great toe extension/flexion SILT in sural, saph, dp, sp, saphenous, and tibial nerve distribution Toes warm and well perfused Constitutional: alert, oriented Psych: no complaints Head: normocephalic Results Result Diagram: 08/18/17 0455 Results 24 hrs Laboratory Tests Test 08/18/17 04:55 White Blood Count 11.7 #H Red Blood Count 3.29 L Hemoglobin 9.1 L Hematocrit 29.1 L Mean Corpuscular Volume 88.4 Mean Corpuscular Hemoglobin 27.7 L Mean Corpuscular Hemoglobin Concent 31.3 L Red Cell Distribution Width 13.9 Platelet Count 226 # Mean Platelet Volume 11.5 H Neutrophils % 79.3 H Lymphocytes % 10.9 L Monocytes % 9.2 Eosinophils % 0.0 Basophils % 0.2 Nucleated Red Blood Cells % 0.0 Neutrophils # 9.3 H Lymphocytes # 1.3 Monocytes # 1.1 H Eosinophils # 0.0 Basophils # 0.0 Nucleated Red Blood Cells # 0.0 Medications Medications Current Medications Senna/Docusate Sodium (Senokot-S) 1 tab BID PO Last administered on 08/16/17 20:28; Admin Dose 1 TAB; Start 08/16/17 at 21:00 Simethicone (Mylicon) 80 mg TID PRN PO DISTENSION/GAS/BLOATING; Start 08/16/17 at 13:30 Magnesium Hydroxide (Milk Of Mag) 30 ml BID PRN PO CONSTIPATION; Start at 13:30 Gabapentin (Neurontin) 300 mg HS PO Last administered on 08/17/17 20:25; Admin Dose 300 MG; Start 08/16/17 at 21:00 Ondansetron HCl (Zofran Inj) 4 mg Q6H PRN IV NAUSEA AND/OR VOMITING; Start 08/16/17 at 13:30 Diphenhydramine HCl (Benadryl) 25 mg Q6H PRN IV PRURITUS Last administered on 08/18/17 03:34; Admin Dose 25 MG; Start 08/16/17 at 13:51 Aspirin 81 mg 81 mg DAILY PO Last administered on 08/18/17 09:33; Admin Dose 81 MG; Start 08/17/17 at 09:00 Lactated Ringer's (Lr) 1,000 ml @ 100 mls/hr Q10H IV Last administered on 08/16 23:03; Admin Dose 100 MLS/HR; Start 08/16/17 at 13:11 Ketorolac Tromethamine (Toradol) 30 mg Q6H PRN IV PAIN Last administered on 09:34; Admin Dose 30 MG; Start 08/17/17 at 09:15; Stop 08/20/17 at 09:14 DANIS LOZANO MD Aug 18, 2017 11:01
[2017-08-18 19:50] VITALS: BP 132/70; RESP 20
[2017-08-18] MEDS: GABAPENTIN 300 MG CAP PO SCH (20:58)
[2017-08-18 22:39] VITALS: PULSE 95
[2017-08-19 01:00] VITALS: PULSE 88
[2017-08-19] MEDS: LACTATED RINGER'S 1,000 ML IV SCH ×2 (01:11→11:11)
[2017-08-19] MEDS: KETOROLAC 30 MG INJ IV PRN ×2 (04:34→10:23)
[2017-08-19 07:12] VITALS: BP 140/79; RESP 20
[2017-08-19] MEDS: ASPIRIN 81 MG TAB PO SCH (08:16)
[2017-08-19] MEDS: SENNA/DOCUSATE NA (8.6MG/50MG) TAB PO SCH (08:16)
--- NOTE | 2017-08-19 08:42 | PN ---
Date/Time of Note Date/Time of Note DATE: 08/19/17 TIME: 08:41 24 hour Interval Summary She is more comfortable today and ready to be discharged after physical therapy. Physical Exam Physical examination: Her wound is clean and dry. She is neurologically intact. There are no signs of DVT. Vital Signs Date Time Temp Pulse Resp B/P Pulse Ox O2 Delivery O2 Flow Rate FiO2 08/19/17 07:12 98.1 101 20 140/79 96 08/19/17 01:00 30 08/17/17 20:48 Nasal Cannula 3.0 Intake and Output 08/18/17 08/18/17 08/19/17 14:59 22:59 06:59 Intake Total 900 ml 1200 ml Output Total 900 ml Balance 0 ml 1200 ml VTE Prophylaxis VTE Prophylaxis Intervention: SCD's Lines/Catheters IV Catheter Type: Saline Lock Tavarez in Place: No Results Result Diagram: 08/18/17 0455 Assessment/Plan Chief Complaint/Hosp Course Admitted and underwent THR. POD #2 she was afeb, stable and indep ambulatory. To be D/c'd and followed up in office in two weeks. Problems: Assessment/Plan Assessment: Status post total hip Plan: She will be discharged later this morning after clearance by physical therapy Medications Medications Home Meds No Active Prescriptions or Reported Meds NOMAN LOMBARDI MD Aug 19, 2017 08:42
== END 2017-08-19 13:00 | disposition home or self-care (01) | DRG 470 ==
LOC: REC 06:32 → MS1 12:28
PROVIDERS: ADMIT Orthopaedic Surgery; ATTEND Orthopaedic Surgery
PROC: 0SRB04A Replacement of Left Hip Joint with Ceramic on Polyethylene Synthetic Substitute, Uncemented, Open Approach (ICD-10-PCS; principal; 2017-08-16 08:30)
DX: M16.12 Unilateral primary osteoarthritis, left hip (principal); Z68.41 Body mass index [BMI] 40.0-44.9, adult; G47.33 Obstructive sleep apnea (adult) (pediatric); H81.10 Benign paroxysmal vertigo, unspecified ear; J45.909 Unspecified asthma, uncomplicated; Z96.641 Presence of right artificial hip joint; E66.9 Obesity, unspecified; Z87.442 Personal history of urinary calculi
CPT/HCPCS: 72170; 73530; 85025; 86999; 87086; 94660; 97110; 97116; 97162; 97530; C1713; C1776; J0171; J0690; J0735; J1100; J1200; J1885; J2250; J2274; J2405; J2710; J3370; J7120